=== PATIENT | male | born 2005 | race African-American/Black ===

== ENCOUNTER 2024-12-10 14:00 | Outpatient (REF) | payer SELFPAY ==
[2024-12-10 14:01] VITALS: BP 154/79; PULSE 109; RESP 16; TEMP 37.3; O2SAT 99; BMI 26.4
[2024-12-10] MEDS: Diphth,Pertuss(Acell),Tet Vac 0.5 ML Vial IM (14:39)
--- NOTE | 2024-12-10 14:45 | RAD_ITS ---
PROCEDURE: FOOT MIN 3 VIEWS (RADFO), 12/10/2024 REASON FOR EXAM: GREAT TOE INJURY TECHNIQUE: PA, lateral, and oblique views of the LEFT foot were obtained. COMPARISON: None FINDINGS: Fracture/dislocation: There appears to be at least partial avulsion of the 1st toenail from the nailbed . No other visible acute displaced fracture or malalignment identified. Likely bipartite medial sesamoid, normal variant. Trace to mild hallux valgus. Joint space(s): Preserved. Soft tissues: Soft tissue calcifications along the lateral aspect of the posterior cuboid, possibly related to remote trauma or reflective of calcific tendinopathy.. Foreign bodies: None visible. Bone mineralization: Unremarkable. Other: None. RAD/Foot min 3 Views IMPRESSION: 1. There appears to be at least partial avulsion of the 1st toenail from the na ilbed. No other visible acute displaced fracture or malalignment identified. 2. Additional description as above. Reading Location: [id number]
--- NOTE | 2024-12-10 14:49 | EX.ED.DYSGE1 ---
HPI History of Present Illness Chief Complaint: Lower Extremity Injury Narrative Narrative: Patient is a 19-year-old male with no known significant past medical history who presented to the emergency department chief complaint of left toe pain. Patient states that he was just recently out of care home and notes that he was in a car and had just gotten out and the redrying machine operator told him that they got him for a traffic stop he states that he was not driving he did not understand he states that a unmarked car came up and started yelling at him therefore he started to walk off and noted that ultimately he was going through the [place] and notes that his shoe came off and when they tackled him he knows that his toenail ripped off. He states that he was complaining of some right wrist pain but by the time he got here he states that his wrist is feeling better he states that he landed on this. Patient does not know when his last tetanus shot was. PFSH PFSH Medical History unable to obtain Home Medications ?Medication ?Instructions ?Recorded ?Last Taken ?Type ciprofloxacin HCl 500 mg tablet 500 mg PO Q12H 5 days #10 tabs 12/10/24 Unknown Rx (Cipro) Allergy/AdvReac Type Severity Reaction Status Date / Time No Known Allergies Allergy Verified 12/10/24 14:01 Social History Smoking Status: Unknown if ever smoked ROS ROS ED ROS Narrative Constitutional: Denies headache, fever, chills, lightness, dizziness Cardiovascular: Denies chest pain or palpitations Respiratory: Denies cough and wheezing shortness of breath Abdomen: Denies abdominal pain nausea vomit diarrhea Neurological: Denies numbness, weakness, tingling Musculoskeletal: Complains of left toe pain as noted above as well as right wrist pain but states that this is better now Skin: Complains of toenail ripped off EXAM Physical Exam Narrative Exam Narrative: General: Patient lying in bed rest comfortably did not appear to be in acute distress Head: Atraumatic, normocephalic Eyes: PERRL bilaterally, EOMI bilateral, no conjunctival injection noted Neck: Soft, supple, trachea midline Cardiovascular: Regular rate and rhythm Respiratory: Clear to auscultation bilaterally Abdomen: No tenderness palpation Musculoskeletal: All bony prominences palpated joints taken to full range of motion no pain elicited Extremities: Radial pulses +2/4 in the bilateral extremities, +5/5 strength noted in the bilateral upper and lower extremities Neurological: Patient follow commands and that he was at [facility] year is 2024 Skin: Warm, dry, intact no rashes lesions noted Const Vital Signs: 12/10/24 14:01 Temperature 99.2 F H Temperature Source Temporal Pulse Rate 109 H Respiratory Rate 16 Blood Pressure 154/79 H Blood Pressure Mean 104 Pulse Ox 99 Oxygen Delivery Method Room Air MDM MDM MDM Narrative Medical decision making narrative: Patient is a 19-year-old male who presents to the emergency department via police with a chief complaint of toenail injury. On the differential diagnose includes but not limited to great toe fracture, toenail injury. Once workup is obtained reviewed he will be reevaluated. Patient's tetanus shot will be updated. Patient states that he does not want a x-ray of his wrist as his wrist feels back to normal and has no pain at this point time. Patient's x-ray reviewed by myself and by radiology and showed no fractures. Patient had a digital block of the great left toe performed with 1% lidocaine without epinephrine. Patient tolerated this well without any complications. After the patient's left great toe was anesthetized the nail was placed back in the tract and was still intact did not have to be removed. I notified the patient that this nail will fall off and a new nail will grow. Patient was given dose of ciprofloxacin here a prescription for ciprofloxacin will be given to him as able take this back to the care home as he has been taken by police back to the care home. He was advised to watch for signs of infection such as purulent drainage surrounding redness or any other concerns he should return to the emergency department. All course concerns answered he was discharged home in stable condition Radiography Diagnostic Testing: Clinical Impression(s) from Imaging Studies Foot X-Ray 12/10/24 14:45 IMPRESSION: 1. There appears to be at least partial avulsion of the 1st toenail from the nailbed. No other visible acute displaced fracture or malalignment identified. 2. Additional description as above. Reading Location: [facility] Discharge Plan Triage Chief Complaint: Lower Extremity Injury ED Provider: Berto Sheikh Dx/Rx/DC Orders Clinical Impression: Avulsed toenail Prescriptions: New ciprofloxacin HCl [Cipro] 500 mg tablet 500 mg PO Q12H 5 Days Qty: 10 0RF Primary Care Provider: Justo Kaufman Referrals: Care Physician,No Primary [Non-Staff] - Haylie Feldman Brigida, NURSING TECHN-C [[facility]] - Activity Restrictions/Additional Instructions: Take antibiotics as prescribed. Rotate Tylenol and ibuprofen [id number] for pain control. You should start taking these medications prior to the block wearing off. The your toenail will fall off and a new one will grow. Watch out for signs infection such as purulent drainage coming from the wound or surrounding redness. Return with any other concerns. Your tetanus shot was updated today. Print Language: Nicaraguan Disposition Disposition: Home, Self Care
[2024-12-10] MEDS: Lidocaine 1% (20 ml mdv) 20 ML Vial 10 ML INFILT (15:37)
[2024-12-10 16:32] VITALS: BP 110/80; PULSE 89; RESP 16; TEMP 36.6; O2SAT 98
[2024-12-10] MEDS: Ciprofloxacin 500 MG Tablet PO (16:40)
== END 2024-12-10 16:47 | disposition home or self-care (01) ==
LOC: EDREF 14:00
PROVIDERS: PCP Pediatrics; Visit Provider Emergency Medicine
DX: S91.202A Unspecified open wound of left great toe with damage to nail, initial encounter (principal); Y35.811A Legal intervention involving manhandling, law enforcement official injured, initial encounter; M25.531 Pain in right wrist; Z11.52 Encounter for screening for COVID-19
CPT/HCPCS: 64450; 73630; 90471; 90715